=== PATIENT | female | born 1940 | race Caucasian/White ===

== ENCOUNTER 2021-12-26 14:32 | Inpatient (IN) | payer MEDICARE, OTHER ==
[~2021-12-26] VITALS: Ht 162.6 cm; Wt 83.1 kg
[2021-12-26] MEDS ORDERED: ADENOSINE 3 MG/ML 2ML VIAL IV ONE ×3 (15:17→15:30)
[2021-12-26] MEDS ORDERED: ADENOSINE 3 MG/ML 2ML VIAL IV STA (15:27)
[2021-12-26] MEDS ORDERED: DILTIAZEM HCL 5MG/ML 5ML VIAL IV ONE (15:30)
[2021-12-26] MEDS ORDERED: SODIUM CHLORIDE 0.9% 1,000 ML IV ONE (15:30)
[2021-12-26 15:51] LABS: BASOPHILS % 0.7 % (0.0-2.0); HEMATOCRIT. 35.1 % (36.0-48.0); HEMOGLOBIN. 12.4 g/dL (12.0-16.0); LYMPHOCYTES % 21.3 % (20.0-50.0); MEAN CORPUSCULAR HEMOGLOBIN 32.7 pg (28.0-32.0); MEAN CORPUSCULAR VOLUME 92.2 fL (81.0-99.0); MONOCYTES % 8.1 % (2.0-8.0); NEUTROPHILS % 68.9 % (40.0-76.0); PLATELET 190 x1000/uL (130-400); RED CELL DISTRIBUTION WIDTH 13.7 % (11.6-14.6)
[2021-12-26] MEDS ORDERED: DILTIAZEM HCL 125 MG in DEXT 5% WATER 100 ML IV ONE ×2 (16:00→16:30)
[2021-12-26 16:06] LABS: CHLORIDE 111 mEq/L (98-107)
[2021-12-26] MEDS: DILTIAZEM 125MG/125ML PMX 100 ML IV NR (16:49)
[2021-12-26] MEDS: DILTIAZEM HCL 30MG TABLET PO SCH (23:22)
[2021-12-27] VITALS (55 sets, daily range): BP systolic 80–176; BP diastolic 38–126
[2021-12-27] MEDS: DILTIAZEM HCL 30MG TABLET PO SCH ×3 (04:39→17:30)
[2021-12-27] MEDS ORDERED: DILTIAZEM HCL 125 MG in DEXT 5% WATER 100 ML IV PRN (10:30)
[2021-12-27] MEDS ORDERED: ENOXAPARIN 80MG/0.8ML SYR SUBCUT NR (11:00)
[2021-12-27] MEDS ORDERED: DILTIAZEM HCL 125 MG in DEXT 5% WATER 100 ML IV SCH (11:30)
[2021-12-27] MEDS ORDERED: DILTIAZEM HCL 5MG/ML 5ML VIAL IV NR (11:30)
[2021-12-27] MEDS ORDERED: LORAZEPAM 0.5MG TABLET PO PRN (11:30)
[2021-12-27] MEDS ORDERED: DILTIAZEM 125MG/125ML PMX 125 ML IV PRN (11:30)
[2021-12-27] MEDS ORDERED: LORAZEPAM 0.5MG TABLET PO NR (11:30)
[2021-12-27] MEDS ORDERED: MAGNESIUM 2 G PREMIX 50 ML IV NR (11:45)
[2021-12-27 11:50] LABS: HEMATOCRIT 34.8 % (36.0-48.0); HEMOGLOBIN 12.1 g/dL (12.0-16.0); MEAN CORPUSCULAR HEMOGLOBIN 32.1 pg (28.0-32.0); MEAN CORPUSCULAR VOLUME 92.1 fL (81.0-99.0); PLATELET 170 x1000/uL (130-400); RED BLOOD CELL COUNT 3.78 mill/uL (4.2-5.4); RED CELL DISTRIBUTION WIDTH 13.8 % (11.6-14.6)
[2021-12-27 11:58] LABS: PROTHROMBIN TIME 10.9 sec (9.6-11.0)
[2021-12-27] MEDS: MAGNESIUM OXIDE 400MG TABLET PO SCH (12:27)
[2021-12-27 13:03] LABS: CHLORIDE 110 mEq/L (98-107)
[2021-12-27] MEDS ORDERED: METOPROLOL TARTRATE 5MG/5ML VIAL IV SCH (14:00)
[2021-12-27] MEDS ORDERED: KCL 20MEQ/100ML PREMIX 100 ML IV SCH (14:00)
[2021-12-27] MEDS ORDERED: METOPROLOL TARTRATE 5MG/5ML VIAL IV NR (18:59)
[2021-12-27] MEDS: ENOXAPARIN 80MG/0.8ML SYR SUBCUT SCH (22:21)
[2021-12-27] MEDS: DILTIAZEM HCL 60MG TABLET PO SCH (22:28)
[2021-12-27] MEDS: DILTIAZEM 125MG/125ML PMX 100 ML IV NR (22:45)
[2021-12-28] VITALS (51 sets, daily range): BP systolic 76–134; BP diastolic 25–95
[2021-12-28] MEDS ORDERED: DILTIAZEM 125MG/125ML PMX 125 ML IV PRN (00:45)
[2021-12-28] MEDS ORDERED: METOPROLOL TARTRATE 5MG/5ML VIAL IV PRN (01:00)
[2021-12-28] MEDS: DILTIAZEM 125MG/125ML PMX 125 ML IV SCH ×2 (05:02→07:06)
[2021-12-28] MEDS: DILTIAZEM HCL 60MG TABLET PO SCH (05:42)
[2021-12-28 07:02] LABS: BASOPHILS % 0.5 % (0.0-2.0); EOSINOPHILS % 0.9 % (0.0-5.0); HEMATOCRIT. 33.2 % (36.0-48.0); HEMOGLOBIN. 11.2 g/dL (12.0-16.0); LYMPHOCYTES % 14.2 % (20.0-50.0); MEAN CORPUSCULAR HEMOGLOBIN 31.5 pg (28.0-32.0); MEAN PLATELET VOLUME 8.3 fl (7.4-10.4); MONOCYTES % 8.2 % (2.0-8.0); NEUTROPHILS % 76.2 % (40.0-76.0); PLATELET 164 x1000/uL (130-400); RED BLOOD CELL COUNT 3.57 mill/uL (4.2-5.4)
[2021-12-28 07:11] LABS: CHLORIDE 109 mEq/L (98-107)
[2021-12-28] MEDS: METOPROLOL TARTRATE 25MG TABLET PO SCH ×3 (09:00→21:06)
[2021-12-28] MEDS: ENOXAPARIN 80MG/0.8ML SYR SUBCUT SCH ×2 (09:14→21:30)
[2021-12-28] MEDS: MAGNESIUM OXIDE 400MG TABLET PO SCH (09:14)
[2021-12-28] MEDS: DILTIAZEM HCL 90MG TABLET PO SCH ×2 (14:00→22:08)
[2021-12-29] VITALS (22 sets, daily range): BP systolic 96–120; BP diastolic 45–82
[2021-12-29 05:08] LABS: BASOPHILS % 0.9 % (0.0-2.0); EOSINOPHILS % 3.6 % (0.0-5.0); HEMATOCRIT. 33.5 % (36.0-48.0); HEMOGLOBIN. 11.6 g/dL (12.0-16.0); LYMPHOCYTES % 22.4 % (20.0-50.0); MEAN CORPUSCULAR HEMOGLOBIN 31.9 pg (28.0-32.0); MEAN CORPUSCULAR VOLUME 92.5 fL (81.0-99.0); MEAN PLATELET VOLUME 7.8 fl (7.4-10.4); MONOCYTES % 7.2 % (2.0-8.0); NEUTROPHILS % 65.9 % (40.0-76.0); PLATELET 169 x1000/uL (130-400); RED BLOOD CELL COUNT 3.63 mill/uL (4.2-5.4); RED CELL DISTRIBUTION WIDTH 13.6 % (11.6-14.6)
[2021-12-29 05:23] LABS: CHLORIDE 108 mEq/L (98-107)
[2021-12-29] MEDS: DILTIAZEM HCL 90MG TABLET PO SCH (05:37)
[2021-12-29] MEDS: MAGNESIUM OXIDE 400MG TABLET PO SCH (10:23)
[2021-12-29] MEDS: ENOXAPARIN 80MG/0.8ML SYR SUBCUT SCH (10:23)
[2021-12-29] MEDS: METOPROLOL TARTRATE 25MG TABLET PO SCH (10:24)
== END 2021-12-29 14:30 | disposition home or self-care (01) | DRG 308 ==
LOC: ER 14:32 → EDBEDREQTM 19:52 → EDBEDREQ 19:52 → MICUSO 22:36 → EDBEDREQSVC 22:39 → EDBEDREQTM 22:39 → CVICU 12-27 09:20
PROVIDERS: ADMIT Internal Medicine; ATTEND Internal Medicine
PROC: 05HY33Z Insertion of Infusion Device into Upper Vein, Percutaneous Approach (ICD-10-PCS; principal; 2021-12-27)
DX: I47.1 Supraventricular tachycardia (principal); G93.41 Metabolic encephalopathy; I48.0 Paroxysmal atrial fibrillation; Z20.822 Contact with and (suspected) exposure to COVID-19; I10 Essential (primary) hypertension; F41.9 Anxiety disorder, unspecified; E83.42 Hypomagnesemia; F03.90 Unspecified dementia, unspecified severity, without behavioral disturbance, psychotic disturbance, mood disturbance, and anxiety; D72.829 Elevated white blood cell count, unspecified; H40.9 Unspecified glaucoma; R56.9 Unspecified convulsions; Z79.899 Other long term (current) drug therapy
CPT/HCPCS: 36415; 36573; 71045; 80048; 80053; 83735; 84443; 84484; 85025; 85027; 87426; 93005; 93306; 99291; C1725; J0153; J1650; J3475; J3480; J3490; J7030; J7060